=== PATIENT | male | born 2000 | race Caucasian/White ===

== ENCOUNTER 2020-03-23 14:28 | Emergency (ER) | payer SELFPAY ==
[2020-03-23 14:38] VITALS: BP 139/63; PULSE 95; RESP 20; TEMP 37.4; O2SAT 95; BMI 39.1
--- NOTE | 2020-03-23 15:09 | ED.MALEGU ---
HPI - Male Genitourinary General Chief complaint: Urogenital-Male Stated complaint: UTI symptoms Time Seen by Provider: 03/23/20 14:30 Source: patient Mode of arrival: Ambulatory Limitations: no limitations History of Present Illness HPI Narrative: 19-year-old male nonsmoker with noncontributory medical history presents with his significant other and a chief complaint of 12 hours of burning, frequency and urgency. He denies any fever or chills. Denies abdominal pain. He denies nausea or vomiting. He denies urinary discharge. He denies any new sexual partners. Related Data Home Medications Medication Instructions Recorded Confirmed ibuprofen 400 mg PO #0 03/22/17 07/26/19 Previous Rx's Medication Instructions Recorded albuterol sulfate 90 mcg/actuation 2 puff INHALATION QID #1 inh 07/26/19 aerosol inhaler fluticasone propionate 50 2 spray INTRANASAL BID PRN #1 ml 07/26/19 mcg/actuation nasal spray,suspension sulfamethoxazole-trimethoprim 1 tab PO BID 7 Days #14 tab 03/23/20 [Bactrim DS] Allergies Allergy/AdvReac Type Severity Reaction Status Date / Time kiwi [KIWI] Allergy Unknown POSSIBLE Unverified 07/26/19 09:04 ANAPHYLAXIS Penicillins Allergy Rash Verified 03/23/20 14:40 HAY FEVER Allergy Unknown Uncoded 07/26/19 09:04 Review of Systems Constitutional Constitutional: Denies chills, Denies fatigue, Denies fever(s), Denies frequent falls, Denies lethargy and Denies weakness Eyes Eyes: Denies change in vision, Denies eye discharge, Denies irritation and Denies loss of vision ENT Ears, Nose, Mouth, and Throat: Denies change in voice, Denies dizziness, Denies neck pain, Denies sore throat and Denies throat swelling Cardiovascular Cardiovascular: Denies chest pain, Denies irregular heart rhythm, Denies lightheadedness, Denies palpitations, Denies dyspnea, Denies dyspnea on exertion and Denies orthopnea Respiratory Respiratory: Denies cough, Denies dyspnea, Denies dyspnea on exertion and Denies wheezing Gastrointestinal Gastrointestinal: Denies abdominal pain, Denies change in bowel habits, Denies diarrhea, Denies nausea and Denies vomiting Genitourinary Genitourinary: Reports dysuria Genitourinary: Reports dysuria Musculoskeletal Musculoskeletal: Denies neck pain and Denies numbness Integumentary/Breasts Skin/Breast: Denies pruritus, Denies erythema, Denies rash and Denies wounds Neurologic Neurologic: Denies behavioral changes, Denies confusion, Denies dizziness, Denies frequent falls, Denies loss of vision, Denies numbness and Denies weakness Psychiatric Psychiatric: Denies anxiety, Denies behavioral changes, Denies confusion, Denies depression, Denies homicidal ideation and Denies suicidal ideation Endocrine Endocrine: Denies fatigue, Denies flushing and Denies palpitations Hematologic/Lymphatic Hematologic/Lymphatic: Denies easy bruising Allergic/Immunologic Allergic/Immunologic: Denies urticaria, Denies throat swelling and Denies wheezing Patient History Medical History Allergies (Chronic) Asthma (Chronic) BMI greater than 40 (Acute) Establishing care with new doctor, encounter for (Acute) Family History Grandmother Diabetes mellitus Grandfather History of heart disease Grandfather History of ETOH abuse Social History Smoking Status: Never smoker Smoking Status: Never smoker Substance Use Type: does not use Exam Narrative Exam Narrative: GENERAL: [19] year old patient appears stated age. Well-nourished, well-developed patient, in mild distress. HEAD: Atraumatic. Normocephalic. EYES: Pupils equal round and reactive. Extraocular motions intact. No scleral icterus. No injection or drainage. ENT: Nose without bleeding, purulent drainage. Throat without erythema, tonsillar hypertrophy or exudate. Airway patent. NECK: Trachea midline. Non tender CARDIOVASCULAR: Regular rate and rhythm without murmurs, gallops, or rubs. RESPIRATORY: Clear to auscultation. Breath sounds equal bilaterally. No wheezes, rales, or rhonchi. GASTROINTESTINAL: Abdomen soft, non-tender, nondistended. EXTREMITIES: No edema or joint tenderness. BACK: Nontender without deformity or crepitance. No flank tenderness. NEURO: AOx3. SKIN: No rash or erythema of visible areas Initial Vital Signs Initial Vital Signs: Vital Signs Temperature 99.3 F 03/23/20 14:38 Pulse Rate 95 H 03/23/20 14:38 Respiratory Rate 20 03/23/20 14:38 Blood Pressure 139/63 03/23/20 14:38 Pulse Oximetry 95 03/23/20 14:38 Course Course Course Narrative: Significant other here for the same symptoms, her urine is much more convincing for UTI. His symptoms have only been 12 hours or so but classic for UTI hence decision to treat Orders Ordered: ED Orders 03/23/20 14:50 Urine Microscopic Stat Vital Signs Vital signs: Vital Signs - 8 hr 03/23/20 14:38 Temperature 99.3 F Pulse Rate 95 H Respiratory Rate 20 Blood Pressure 139/63 Pulse Oximetry 95 MDM - Male Genitourinary Lab Data Labs: Lab Results 03/23/20 Range/Units 14:50 Urine RBC None seen (0-5/HPF) Urine WBC 0-1/hpf (0-5/HPF) Amorphous Sediment 3+ Urine Bacteria None seen (None) Ur Culture Indicated? Cult not indicated Urine Dip Bedside Urine Glucose Negative Bedside Urine Bilirubin - Negative Bedside Urine Ketone +/- 5 Urine Specific [place] 1.020 Bedside Urine Occult Blood +/- Bedside Urine pH 7 Bedside Urine Protein +/- 15 Bedside Urine Urobilinogen +/- 1mg Bedside Urine Nitrite - Negative Bedside Urine Leukocytes - Negative Esterase Discharge Plan Departure Patient Disposition: Home Clinical Impression: Urethritis Instructions: DI for Urinary Tract Infection (UTI) Activity Restrictions/Additional Instructions: *You have been diagnosed with [urinary tract infection] *What to do: *Take medications as directed: Antibiotic sent to [facility] *Follow up with your primary care provider in 2-3 days, call for an appointment. Let them know you were seen in the Emergency Department and that we ask that you be seen in follow up *Return to ER if you should have any new, worsening or concerning symptoms Prescriptions: New sulfamethoxazole-trimethoprim [Bactrim DS] 800-160 mg tablet 1 tab PO BID 7 Days Qty: 14 RF: 0 No Action ibuprofen 200 MG tablet 400 mg PO Qty: 0 RF: 0 albuterol sulfate [Proventil HFA] 90 mcg/actuation HFA aerosol inhaler 2 puff inhalation QID Qty: 1 RF: 1 fluticasone propionate [Flonase Allergy Relief] 50 mcg/actuation spray,suspension 2 spray Intranasal BID PRN (Reason: allergy symptoms) Qty: 1 RF: 5 Referrals: Sundar Sauceda MD [Primary Care Provider] -
[2020-03-23 15:16] LABS: Bacteria Urine None Seen; RBC Urine None Seen (0-5/HPF)
[2020-03-23 15:17] LABS: Amorphous Sediment Urine 3+; Culture Indicated Urine Cult Not Indicated; WBC Urine 0-1/HPF (0-5/HPF)
== END 2020-03-23 15:30 | disposition home or self-care (01) ==
PROVIDERS: Emergency Provider Emergency Medicine; Family Provider Family Medicine; PCP Family Medicine
DX: N34.2 Other urethritis (principal)
CPT/HCPCS: 81003; 81015; 99281; 99282

== ENCOUNTER 2020-04-06 23:27 | Emergency (ER) | payer SELFPAY ==
[2020-04-06 23:42] VITALS: BP 170/80; PULSE 70; RESP 15; TEMP 36.9; O2SAT 97; BMI 39.1
[2020-04-06] MEDS: TRIMETH/SULFA 160/800 (DS) TABLET 1 TAB PO (23:57)
--- NOTE | 2020-04-07 00:03 | ED_ITS ---
HPI - Male Genitourinary General Chief complaint: Urogenital-Male Stated complaint: states uti Time Seen by Provider: 04/06/20 23:32 Source: patient Mode of arrival: Ambulatory Limitations: no limitations History of Present Illness HPI Narrative: 19M nonsmoker with history of asthma presents with his significant other and a chief complaint of urinary frequency, urgency and burning with urination over the course of the day. He recently was seen and evaluated for a urinary tract infection which improved with the use of Bactrim. Denies systemic findings such as fever, chills nor nausea, vomiting or. He is not dizzy nor weak or lightheaded. Denies any back or flank pain. He denies any discharge. MD Complaint: dysuria Onset (ago): hour(s) Duration: constant Severity: mild Quality: burning Relieving factors: none Exacerbating factors: urination Associated symptoms: Reports dysuria Related Data Home Medications Medication Instructions Recorded Confirmed ibuprofen 400 mg PO #0 03/22/17 07/26/19 Previous Rx's Medication Instructions Recorded albuterol sulfate 90 mcg/actuation 2 puff INHALATION QID #1 inh 07/26/19 aerosol inhaler fluticasone propionate 50 2 spray INTRANASAL BID PRN #1 ml 07/26/19 mcg/actuation nasal spray,suspension fluconazole 150 mg PO Q3D #2 tab 04/06/20 sulfamethoxazole-trimethoprim 1 tab PO BID 5 Days #10 tab 04/06/20 [Bactrim DS] Allergies Allergy/AdvReac Type Severity Reaction Status Date / Time kiwi [KIWI] Allergy Unknown POSSIBLE Unverified 07/26/19 09:04 ANAPHYLAXIS Penicillins Allergy Rash Verified 03/23/20 14:40 HAY FEVER Allergy Unknown Uncoded 07/26/19 09:04 Review of Systems Constitutional Constitutional: Denies chills, Denies fatigue, Denies fever(s), Denies frequent falls, Denies lethargy and Denies weakness Eyes Eyes: Denies change in vision, Denies eye discharge, Denies irritation and Denies loss of vision ENT Ears, Nose, Mouth, and Throat: Denies change in voice, Denies dizziness, Denies neck pain, Denies sore throat and Denies throat swelling Cardiovascular Cardiovascular: Denies chest pain, Denies irregular heart rhythm, Denies lightheadedness, Denies palpitations, Denies dyspnea, Denies dyspnea on exertion and Denies orthopnea Respiratory Respiratory: Denies cough, Denies dyspnea, Denies dyspnea on exertion and Denies wheezing Gastrointestinal Gastrointestinal: Denies abdominal pain, Denies change in bowel habits, Denies diarrhea, Denies nausea and Denies vomiting Genitourinary Genitourinary: Reports dysuria and Reports dysuria Genitourinary: Reports dysuria and Reports dysuria Musculoskeletal Musculoskeletal: Denies neck pain and Denies numbness Integumentary/Breasts Skin/Breast: Denies pruritus, Denies erythema, Denies rash and Denies wounds Neurologic Neurologic: Denies behavioral changes, Denies confusion, Denies dizziness, Denie s frequent falls, Denies loss of vision, Denies numbness and Denies weakness Psychiatric Psychiatric: Denies anxiety, Denies behavioral changes, Denies confusion, Denies depression, Denies homicidal ideation and Denies suicidal ideation Endocrine Endocrine: Denies fatigue, Denies flushing and Denies palpitations Hematologic/Lymphatic Hematologic/Lymphatic: Denies easy bruising Allergic/Immunologic Allergic/Immunologic: Denies urticaria, Denies throat swelling and Denies wheezing Patient History Medical History Allergies (Chronic) Asthma (Chronic) BMI greater than 40 (Acute) Establishing care with new doctor, encounter for (Acute) Family History Grandmother Diabetes mellitus Grandfather History of heart disease Grandfather History of ETOH abuse Social History Smoking Status: Never smoker Smoking Status: Never smoker Substance Use Type: does not use Exam Initial Vital Signs Initial Vital Signs: Vital Signs Temperature 98.4 F 04/06/20 23:42 Pulse Rate 70 04/06/20 23:42 Respiratory Rate 15 04/06/20 23:42 Blood Pressure 170/80 H 04/06/20 23:42 Pulse Oximetry 97 04/06/20 23:42 Course Orders Ordered: Discontinued Medications Trimethoprim/Sulfamethoxazole (Bactrim Ds) 1 tab PO NOW ONE Stop: 04/06/20 23:53 Last Admin: 04/06/20 23:57 Dose: 1 tab Documented by: NISH Vital Signs Vital signs: Vital Signs - 8 hr 04/06/20 23:42 Temperature 98.4 F Pulse Rate 70 Respiratory Rate 15 Blood Pressure 170/80 H Pulse Oximetry 97 MDM - Male Genitourinary Lab Data Labs: Urine Dip Bedside Urine Glucose Negative Bedside Urine Bilirubin - Negative Bedside Urine Ketone - Negative Urine Specific [place] 1.015 Bedside Urine Occult Blood - Negative Bedside Urine pH 6.5 Bedside Urine Protein - Negative Bedside Urine Urobilinogen - Negative Bedside Urine Nitrite - Negative Bedside Urine Leukocytes - Negative Esterase Discharge Plan Departure Patient Disposition: Home Clinical Impression: Urethritis, Urinary tract infection Instructions: DI for Urinary Tract Infection (UTI) Activity Restrictions/Additional Instructions: *You have been diagnosed with [urethritis, likely due to early urinary tract infection] *What to do: *Take medications as directed *Follow up with your primary care provider in 2-3 days, call for an appointment. Let them know you were seen in the Emergency Department and that we ask that you be seen in follow up *Return to ER if you should have any new, worsening or concerning symptoms Prescriptions: New fluconazole 150 mg tablet 150 mg PO Q3D Qty: 2 RF: 0 sulfamethoxazole-trimethoprim [Bactrim DS] 800-160 mg tablet 1 tab PO BID 5 Days Qty: 10 RF: 0 No Action ibuprofen 200 MG tablet 400 mg PO Qty: 0 RF: 0 albuterol sulfate [Proventil HFA] 90 mcg/actuation HFA aerosol inhaler 2 puff inhalation QID Qty: 1 RF: 1 fluticasone propionate [Flonase Allergy Relief] 50 mcg/actuation spray,suspension 2 spray Intranasal BID PRN (Reason: allergy symptoms) Qty: 1 RF: 5 Referrals: Sundar Sauceda MD [Primary Care Provider] -
== END 2020-04-07 00:11 | disposition home or self-care (01) ==
PROVIDERS: Emergency Provider Emergency Medicine; Family Provider Family Medicine; PCP Family Medicine
DX: N34.2 Other urethritis (principal)
CPT/HCPCS: 81003; 99283

== ENCOUNTER 2020-04-07 15:48 | Emergency (ER) | payer SELFPAY ==
[2020-04-07 15:58] VITALS: BP 145/68; PULSE 78; RESP 18; TEMP 36.3; O2SAT 96
[2020-04-07] MEDS: DEXAMETHASONE 10 MG/ML VIAL PO (16:59)
--- NOTE | 2020-04-07 17:33 | ED.ALLEREA ---
HPI - Allergic Reaction <MELISSA Cortez - Last Filed: 04/07/20 17:40> General Chief complaint: Allergic Reaction Stated complaint: states thinks allergic reaction Time Seen by Provider: 04/07/20 16:36 Source: patient Mode of arrival: Ambulatory History of Present Illness HPI narrative: 19-year-old male presents emergency department for rash on his extremity and chest. He states the rash started today, he states it is itchy, he tried taking Benadryl which has helped a little but continues. Patient states he was seen yesterday and given Bactrim for urinary tract infection, he is concerned he may be allergic to this. He denies any history of allergies to sulfa in the past. Patient denies any other symptoms such as shortness of breath, tongue swelling, sore throat, dizziness, nausea, vomiting, diarrhea, or any other concerns. Related Data Home Medications Medication Instructions Recorded Confirmed ibuprofen 400 mg PO #0 03/22/17 07/26/19 Previous Rx's Medication Instructions Recorded albuterol sulfate 90 mcg/actuation 2 puff INHALATION QID #1 inh 07/26/19 aerosol inhaler fluticasone propionate 50 2 spray INTRANASAL BID PRN #1 ml 07/26/19 mcg/actuation nasal spray,suspension fluconazole 150 mg PO Q3D #2 tab 04/06/20 sulfamethoxazole-trimethoprim 1 tab PO BID 5 Days #10 tab 04/06/20 [Bactrim DS] cephalexin 500 mg PO QID 7 Days #28 cap 04/07/20 Allergies Allergy/AdvReac Type Severity Reaction Status Date / Time kiwi [KIWI] Allergy Unknown POSSIBLE Unverified 07/26/19 09:04 ANAPHYLAXIS Penicillins Allergy Rash Verified 03/23/20 14:40 HAY FEVER Allergy Unknown Uncoded 07/26/19 09:04 Review of Systems <MELISSA Cortez - Last Filed: 04/07/20 17:40> Review of Systems Narrative: REVIEW OF SYSTEMS: GENERAL: Denies fever or chills. HENT: No head trauma. CARDIOVASCULAR: No chest pain. RESPIRATORY: No shortness of breath or cough. GASTROINTESTINAL: No nausea, vomiting, or abdominal pain, see HPI. GENITOURINARY: Reports decreased symptoms since yesterday such as dysuria. MUSCULOSKELETAL: No trauma. INTEGUMENTARY: Reports rash, see HPI. NEURO: No memory loss or confusion. Patient History <MELISSA Cortez - Last Filed: 04/07/20 17:40> Medical History Allergies (Chronic) Asthma (Chronic) BMI greater than 40 (Acute) Establishing care with new doctor, encounter for (Acute) Family History Grandmother Diabetes mellitus Grandfather History of heart disease Grandfather History of ETOH abuse Social History Smoking Status: Never smoker Smoking Status: Never smoker Substance Use Type: does not use Exam <MELISSA Cortez - Last Filed: 04/07/20 17:40> Initial Vital Signs Initial Vital Signs: Vital Signs Temperature 97.4 F L 04/07/20 15:58 Pulse Rate 78 04/07/20 15:58 Respiratory Rate 18 04/07/20 15:58 Blood Pressure 145/68 H 04/07/20 15:58 Pulse Oximetry 96 04/07/20 15:58 PHYSICAL EXAMINATION: GENERAL: Alert, and cooperative. Answers questions promptly and appropriately. HENT: Normocephalic, atraumatic. RESPIRATORY: Normal respiratory rate, trachea midline, airway patent. No stridor, nasal flaring or accessory muscle use. Lungs clear, no wheezing, rhonchi or crackles. MUSCULOSKELETAL: Normal gait and coordination. Equal tone and mass bilaterally. EXTREMITIES: CMS intact. Moves all extremities. SKIN: Warm, dry, soft, appropriate color for ethnicity. Hives noted to arms and chest. NEURO: Alert and Oriented X 3. Good coordination. PSYCH: Appropriate affect and mood. <Funmi Yusuf DO - Last Filed: 04/08/20 08:31> Initial Vital Signs Initial Vital Signs: Vital Signs Temperature 97.4 F L 04/07/20 15:58 Pulse Rate 78 04/07/20 15:58 Respiratory Rate 18 04/07/20 15:58 Blood Pressure 145/68 H 04/07/20 15:58 Pulse Oximetry 96 04/07/20 15:58 Course <MELISSA Cortez - Last Filed: 04/07/20 17:40> Course Course Narrative: Patient was given dexamethasone in the emergency department to help with symptoms. Orders Ordered: Discontinued Medications Dexamethasone (Decadron) 10 mg PO NOW ONE Stop: 04/07/20 16:49 Last Admin: 04/07/20 16:59 Dose: 10 mg Documented by: SAMI Vital Signs Vital signs: Vital Signs - 8 hr 04/07/20 15:58 Temperature 97.4 F L Pulse Rate 78 Respiratory Rate 18 Blood Pressure 145/68 H Pulse Oximetry 96 <Funmi Yusuf DO - Last Filed: 04/08/20 08:31> Orders Ordered: Discontinued Medications Dexamethasone (Decadron) 10 mg PO NOW ONE Stop: 04/07/20 16:49 Last Admin: 04/07/20 16:59 Dose: 10 mg Documented by: SAMI Vital Signs Vital signs: Vital Signs - 8 hr 04/07/20 15:58 Temperature 97.4 F L Pulse Rate 78 Respiratory Rate 18 Blood Pressure 145/68 H Pulse Oximetry 96 MDM - Allergic Reaction <MELISSA Cortez - Last Filed: 04/07/20 17:40> Medical Records Attestation: I reviewed the patient's medical records. Lab Data Attestation: I reviewed the patient's lab results. MDM Narrative Medical decision making narrative: History and examination concerning for allergic reaction given reason consumption of sulfa and presentation of rash. Differential also includes dermatitis but less likely. Patient was given a dose of dexamethasone, he was encouraged to use Claritin and Benadryl. Patient was switched from Bactrim to sulfa for UTI. Return precautions given for new or worsening symptoms. Patient agreed to plan of care verbalized understanding Discharge Plan Departure Patient Disposition: Home Clinical Impression: Allergic reaction Qualifiers: Encounter type: initial encounter Qualified Code(s): T78.40XA - Allergy, unspecified, initial encounter Discharge Date/Time: 04/07/20 17:08 Instructions: DI for Adverse Drug Reaction -- Allergic Activity Restrictions/Additional Instructions: Thank you for entrusting me with your care today. As discussed, it appears that you may be reacting to the antibiotics that you have been given. I have switched your antibiotics, please stop taking Bactrim, start taking cephalexin. Your prescription was sent to [facility] in [place]. We have given you a dose of dexamethasone today to help with the itching and the rash. Use Benadryl or Claritin for the next 2-3 days to help with further itching and rash development. Follow-up with your PCP in 1-2 weeks for further evaluation. Return emergency department for any new or worsening symptoms. Prescriptions: New cephalexin 500 mg capsule 500 mg PO QID 7 Days Qty: 28 RF: 0 No Action ibuprofen 200 MG tablet 400 mg PO Qty: 0 RF: 0 albuterol sulfate [Proventil HFA] 90 mcg/actuation HFA aerosol inhaler 2 puff inhalation QID Qty: 1 RF: 1 fluticasone propionate [Flonase Allergy Relief] 50 mcg/actuation spray,suspension 2 spray Intranasal BID PRN (Reason: allergy symptoms) Qty: 1 RF: 5 fluconazole 150 mg tablet 150 mg PO Q3D Qty: 2 RF: 0 sulfamethoxazole-trimethoprim [Bactrim DS] 800-160 mg tablet 1 tab PO BID 5 Days Qty: 10 RF: 0 Referrals: Sundar Sauceda MD [Primary Care Provider] - <Funmi Yusuf DO - Last Filed: 04/08/20 08:31> Cosign ED Attending Cosignature Attestation: I was immediately available in the department for consultation. Documentation has been reviewed. I agree with assessment and plan.
== END 2020-04-07 17:08 | disposition home or self-care (01) ==
PROVIDERS: Emergency Provider Nurse Practitioner; Family Provider Family Medicine; PCP Family Medicine
DX: T78.40XA Allergy, unspecified, initial encounter (principal)
CPT/HCPCS: 99283; J1100

== ENCOUNTER 2020-05-24 16:25 | Emergency (ER) | payer SELFPAY ==
[2020-05-24 16:32] VITALS: BP 187/96; PULSE 71; RESP 18; TEMP 36.4; O2SAT 94; BMI 38.7
--- NOTE | 2020-05-24 18:10 | PC.NURSE ---
pt here with redness to penis, denies pain, discharge or any other sx.
--- NOTE | 2020-05-24 18:46 | ED_ITS ---
HPI - Male Genitourinary General Chief complaint: Urogenital-Male Stated complaint: REDNESS AND SWELING OF THE PENIS Time Seen by Provider: 05/24/20 17:26 Source: patient Mode of arrival: Ambulatory Limitations: no limitations History of Present Illness HPI Narrative: Patient is a 19-year-old male who presents with some erythema at the tip of his penis. He denies any discharge he states he is in a monogamous relationship he has no testicle pain. He does have some burning with urination no fever. MD Complaint: dysuria Location: penis Related Data Home Medications Medication Instructions Recorded Confirmed ibuprofen 400 mg PO #0 03/22/17 07/26/19 Previous Rx's Medication Instructions Recorded albuterol sulfate 90 mcg/actuation 2 puff INHALATION QID #1 inh 07/26/19 aerosol inhaler fluticasone propionate 50 2 spray INTRANASAL BID PRN #1 ml 07/26/19 mcg/actuation nasal spray,suspension fluconazole 150 mg PO Q3D #2 tab 04/06/20 Allergies Allergy/AdvReac Type Severity Reaction Status Date / Time kiwi [KIWI] Allergy Unknown POSSIBLE Verified 05/24/20 16:32 ANAPHYLAXIS bacitracin Allergy Verified 05/24/20 16:32 Penicillins Allergy Rash Verified 05/24/20 16:32 HAY FEVER Allergy Unknown Uncoded 05/24/20 16:32 Review of Systems Review of Systems Narrative: GENERAL: Denies chills,fever HEENT: Denies throat pain RESPIRATORY: Denies dyspnea, cough, wheezing CARDIOVASCULAR: Denies chest pain, palpitations GASTROINTESTINAL: Denies nausea, vomiting : See HPI MUSCULOSKELETAL: Denies extremity pain, injury SKIN: No rash, no laceration, no pruritus NEUROLOGIC: Denies weakness, dizziness, headache, numbness 8 point review of systems is negative except for those stated above and HPI Patient History Medical History (Updated 05/25/20 @ 23:30 by Cayden Collazo DO) Allergies Asthma BMI greater than 40 Establishing care with new doctor, encounter for Family History Grandmother Diabetes mellitus Grandfather History of heart disease Grandfather History of ETOH abuse Social History Smoking Status: Never smoker Smoking Status: Never smoker Substance Use Type: does not use Exam Initial Vital Signs Initial Vital Signs: Vital Signs Temperature 97.5 F L 05/24/20 16:32 Pulse Rate 71 05/24/20 16:32 Respiratory Rate 18 05/24/20 16:32 Blood Pressure 187/96 H 05/24/20 16:32 Pulse Oximetry 94 05/24/20 16:32 GENERAL: Well-appearing, well-nourished and in no acute distress. CARDIOVASCULAR: peripheral pulses in tact, cap refill <2 sec RESPIRATORY: No respiratory distress, speaks in full sentences without difficulty : Nurse Gilles in room for exam minimal erythema at the meatus no gross discharge testicles are non tender EXTREMITIES: Normal range of motion, no clubbing or edema. Neurovascularly intact NEUROLOGICAL: Cranial nerves II through XII grossly intact. Normal gait and speech. SKIN: Warm, dry, no petechiae, no rashes or lesions. Course Vital Signs Vital signs: Vital Signs - 8 hr 05/24/20 16:32 Temperature 97.5 F L Pulse Rate 71 Respiratory Rate 18 Blood Pressure 187/96 H Pulse Oximetry 94 MDM - Male Genitourinary Lab Data Attestation: I reviewed the patient's lab results. Labs: Lab Results 05/24/20 Range/Units 17:40 Ur Chlamydia DNA (PCR) Not detected N gonorrhoeae DNA (PCR) Not detected Urine Dip Bedside Urine Glucose Negative Bedside Urine Bilirubin - Negative Bedside Urine Ketone - Negative Urine Specific [place] 1.025 Bedside Urine Occult Blood - Negative Bedside Urine pH 6 Bedside Urine Protein - Negative Bedside Urine Urobilinogen - Negative Bedside Urine Nitrite - Negative Bedside Urine Leukocytes - Negative Esterase [facility] Narrative Medical decision making narrative: No sign of UTI. Discharge Plan Departure Patient Disposition: Home Clinical Impression: Urethritis Instructions: Urethritis Activity Restrictions/Additional Instructions: *You have been diagnosed with urethritis *What to do: Your gonorrhea chlamydia test is pending however we do not have signs and symptoms of this. If it is positive we will call you. *Continue to take medications as directed *Follow up with your primary care provider in 2-3 days *Return to ER if you should have increasing pain fever or any new, worsening or concerning symptoms Prescriptions: No Action ibuprofen 200 MG tablet 400 mg PO Qty: 0 RF: 0 albuterol sulfate [Proventil HFA] 90 mcg/actuation HFA aerosol inhaler 2 puff inhalation QID Qty: 1 RF: 1 fluticasone propionate [Flonase Allergy Relief] 50 mcg/actuation spray,suspension 2 spray Intranasal BID PRN (Reason: allergy symptoms) Qty: 1 RF: 5 fluconazole 150 mg tablet 150 mg PO Q3D Qty: 2 RF: 0 Referrals: Sundar Sauceda MD [Primary Care Provider] -
--- NOTE | 2020-05-24 18:56 | PC.NURSE ---
chaperoned Dr. Yusuf with genital examination, pt tolerated well
[2020-05-24 19:05] VITALS: BP 165/74; PULSE 74; RESP 18; O2SAT 95
[2020-05-24 20:29] LABS: Urine Chlamydia NOT DETECTED; Urine N gonorrhoeae NOT DETECTED
== END 2020-05-24 19:05 | disposition home or self-care (01) ==
PROVIDERS: Emergency Provider Emergency Medicine; Family Provider Family Medicine; PCP Family Medicine
DX: N34.2 Other urethritis (principal); R30.0 Dysuria
CPT/HCPCS: 81003; 87491; 87591; 99281; 99282

== ENCOUNTER 2020-05-25 22:20 | Emergency (ER) | payer SELFPAY ==
[2020-05-25 22:27] VITALS: BP 142/79; PULSE 71; RESP 18; TEMP 36.9; O2SAT 95; BMI 38.7
--- NOTE | 2020-05-25 22:58 | ED_ITS ---
HPI - Male Genitourinary General Chief complaint: Urogenital-Male Stated complaint: discharge from penis and burning Time Seen by Provider: 05/25/20 22:58 Source: patient Mode of arrival: Ambulatory Limitations: no limitations History of Present Illness HPI Narrative: 19-year-old male nonsmoker is a sexually active male with single partner and a noncontributory medical history presents with a chief complaint of urethral burning, minimal irritation and purulence penile discharge. He was seen and evaluated yesterday but did not have discharge. He had urine demonstrated no infection, it was also process for gonorrhea and chlamydia which showed no findings. He denies systemic findings such as fever, chills nor nausea or vomiting. He has no back pain. MD Complaint: penile discharge Onset (ago): hour(s) Duration: constant Location: penis Severity: mild Quality: aching Relieving factors: none Exacerbating factors: none Associated symptoms: Reports denies other symptoms Related Data Home Medications Medication Instructions Recorded Confirmed ibuprofen 400 mg PO #0 03/22/17 07/26/19 Previous Rx's Medication Instructions Recorded albuterol sulfate 90 mcg/actuation 2 puff INHALATION QID #1 inh 07/26/19 aerosol inhaler fluticasone propionate 50 2 spray INTRANASAL BID PRN #1 ml 07/26/19 mcg/actuation nasal spray,suspension fluconazole 150 mg PO Q3D #2 tab 04/06/20 Allergies Allergy/AdvReac Type Severity Reaction Status Date / Time kiwi [KIWI] Allergy Unknown POSSIBLE Verified 05/24/20 16:32 ANAPHYLAXIS bacitracin Allergy Verified 05/24/20 16:32 Penicillins Allergy Rash Verified 05/24/20 16:32 HAY FEVER Allergy Unknown Uncoded 05/24/20 16:32 Review of Systems Constitutional Constitutional: Denies chills, Denies fatigue, Denies fever(s), Denies frequent falls, Denies lethargy and Denies weakness Eyes Eyes: Denies change in vision, Denies eye discharge, Denies irritation and Denies loss of vision ENT Ears, Nose, Mouth, and Throat: Denies change in voice, Denies dizziness, Denies neck pain, Denies sore throat and Denies throat swelling Cardiovascular Cardiovascular: Denies chest pain, Denies irregular heart rhythm, Denies li ghtheadedness, Denies palpitations, Denies dyspnea, Denies dyspnea on exertion and Denies orthopnea Respiratory Respiratory: Denies cough, Denies dyspnea, Denies dyspnea on exertion and Denies wheezing Gastrointestinal Gastrointestinal: Denies abdominal pain, Denies change in bowel habits, Denies diarrhea, Denies nausea and Denies vomiting Genitourinary Genitourinary: Reports dysuria and Reports penile discharge Genitourinary: Reports dysuria Musculoskeletal Musculoskeletal: Denies neck pain and Denies numbness Integumentary/Breasts Skin/Breast: Denies pruritus, Denies erythema, Denies rash and Denies wounds Neurologic Neurologic: Denies behavioral changes, Denies confusion, Denies dizziness, Denies frequent falls, Denies loss of vision, Denies numbness and Denies weakness Psychiatric Psychiatric: Denies anxiety, Denies behavioral changes, Denies confusion, Denies depression, Denies homicidal ideation and Denies suicidal ideation Endocrine Endocrine: Denies fatigue, Denies flushing and Denies palpitations Hematologic/Lymphatic Hematologic/Lymphatic: Denies easy bruising Allergic/Immunologic Allergic/Immunologic: Denies urticaria, Denies throat swelling and Denies wheezing Patient History Medical History (Updated 05/25/20 @ 23:30 by Cayden Collazo DO) Allergies Asthma BMI greater than 40 Establishing care with new doctor, encounter for Family History Grandmother Diabetes mellitus Grandfather History of heart disease Grandfather History of ETOH abuse Social History Smoking Status: Never smoker Smoking Status: Never smoker Substance Use Type: does not use Exam Narrative Exam Narrative: GEN: AOx3 and in mild distress EYES: Pupils are equal, round, and reactive to light and accommodation. Extraoccular muscles are intact bilaterally. There is no subconjunctival hemorrhage or exudate. CHEST: Lungs are clear to auscultation bilaterally and free of wheezes, rales, or rhonchi. Heart rate is regular rhythm, there are no murmurs, clicks, rubs, or gallops. There is no chest wall tenderness. ABD: Abdomen is soft and nontender. There is no guarding or rebound. Bowel sounds are normal in all 4 quadrants. There is no mass or organomegaly. : minimal yellowish discharge. No penile swelling. No testicular pain or swelling EXT: Full painless ROM of all extremities with no loss of sensation or strength. SKIN: Warm, pink, and dry. No erythema or rash Initial Vital Signs Initial Vital Signs: Vital Signs Temperature 98.4 F 05/25/20 22:27 Pulse Rate 71 05/25/20 22:27 Respiratory Rate 18 05/25/20 22:27 Blood Pressure 142/79 H 05/25/20 22:27 Pulse Oximetry 95 05/25/20 22:27 Course Orders Ordered: ED Orders 05/25/20 23:18 Genital Culture Stat Discontinued Medications Azithromycin (Azithromycin 250 Mg Tablet) 1,000 mg PO NOW ONE Stop: 05/25/20 23:15 Last Admin: 05/25/20 23:30 Dose: 1,000 mg Documented by: RMARTIN Azithromycin (Azithromycin 250 Mg Tablet) 1,000 mg PO NOW ONE Stop: 05/25/20 23:25 Last Admin: 05/25/20 23:25 Dose: Not Given Documented by: RMARTIN Gentamicin Sulfate (Gentamicin 80 Mg/2 Ml Vial) 240 mg IM NOW ONE Stop: 05/25/20 23:26 Last Admin: 05/25/20 23:30 Dose: 240 mg Documented by: RMARTIN Metronidazole (Metronidazole 500 Mg Tablet) 2,000 mg PO NOW ONE Stop: 05/25/20 23:15 Last Admin: 05/25/20 23:29 Dose: 2,000 mg Documented by: RMARTIN Metronidazole (Metronidazole 500 Mg Tablet) 2,000 mg PO NOW ONE Stop: 05/25/20 23:26 Last Admin: 05/25/20 23:25 Dose: Not Given Documented by: RMARTIN Vital Signs Vital signs: Vital Signs - 8 hr 05/25/20 22:27 05/26/20 00:03 Temperature 98.4 F Pulse Rate 71 62 Respiratory Rate 18 18 Blood Pressure 142/79 H 147/77 H Pulse Oximetry 95 95 MDM - Male Genitourinary MDM Narrative Medical decision making narrative: genital culture obtained. Patient with severe PCN allergey so gentamicin given along with Azithro/Flagyl. No systemic fin dings. No testicular, rectal or abdominal pain. No fever or chills. Discharge Plan Departure Patient Disposition: Home Clinical Impression: Urethritis Activity Restrictions/Additional Instructions: *You have been diagnosed with [urethra right is with discharge. The culture we obtained will take a few days to come back, we will call you if there are abnormal findings which would require additional intervention.] *What to do: *Follow up with your primary care provider in 2-3 days, call for an appointment. Let them know you were seen in the Emergency Department and that we ask that you be seen in follow up *Return to ER if you should have any new, worsening or concerning symptoms *Avoid sexual intercourse for 1 week. Typically any other sexual partners would also need treatment, however, our labs have yet to tell us exactly what the cause is and it would be important to know given that your partner is currently Prescriptions: No Action ibuprofen 200 MG tablet 400 mg PO Qty: 0 RF: 0 albuterol sulfate [Proventil HFA] 90 mcg/actuation HFA aerosol inhaler 2 puff inhalation QID Qty: 1 RF: 1 fluticasone propionate [Flonase Allergy Relief] 50 mcg/actuation spray,suspension 2 spray Intranasal BID PRN (Reason: allergy symptoms) Qty: 1 RF: 5 fluconazole 150 mg tablet 150 mg PO Q3D Qty: 2 RF: 0 Referrals: Sanna Hannah MD [Physician] - Sundar Sauceda MD [Primary Care Provider] -
[2020-05-25] MEDS: metroNIDAZOLE 500 MG TABLET 2000 MG PO (23:29)
[2020-05-25] MEDS: AZITHROMYCIN 250 MG TABLET 1000 MG PO (23:30)
[2020-05-25] MEDS: GENTAMICIN 80 MG/2 ML VIAL 240 MG IM (23:30)
[2020-05-26 00:03] VITALS: BP 147/77; PULSE 62; RESP 18; O2SAT 95
== END 2020-05-26 00:04 | disposition home or self-care (01) ==
PROVIDERS: Emergency Provider Emergency Medicine; Family Provider Family Medicine; PCP Family Medicine
DX: N34.2 Other urethritis (principal)
CPT/HCPCS: 87070; 87205; 96372; 99281; 99283; STOP

== ENCOUNTER 2022-01-16 21:54 | Emergency (ER) | payer SELFPAY ==
[2022-01-16 22:03] VITALS: PULSE 74; RESP 16; TEMP 37.3; BMI 39.9
[2022-01-16 23:14] LABS: COVID19 -Nasal RAPID POSITIVE (Negative)
== END 2022-01-16 23:51 | disposition left against medical advice (07) ==
PROVIDERS: Emergency Provider Emergency Medicine; Family Provider Family Medicine; PCP Family Medicine
DX: U07.1 COVID-19 (principal)
CPT/HCPCS: 87635; 99281; C9803